=== PATIENT | female | born 1925 | race Caucasian/White ===

== ENCOUNTER 2016-02-23 13:43 | Outpatient (CLI) | payer MEDICARE | END 2016-02-23 13:44 | disposition home or self-care (01) | DX: R19.7 Diarrhea, unspecified (principal); I48.91 Unspecified atrial fibrillation; Z79.01 Long term (current) use of anticoagulants ==

== ENCOUNTER 2016-02-23 15:11 | Outpatient (CLI) | payer MEDICARE | END 2016-02-23 15:12 | disposition home or self-care (01) | DX: I48.91 Unspecified atrial fibrillation (principal); Z79.01 Long term (current) use of anticoagulants ==

== ENCOUNTER 2016-03-03 15:37 | Emergency (ER) | payer MEDICARE ==
[2016-03-03] MEDS ORDERED: DIPHENOX/ATROPINE 2.5/0.025 MG TABLET PO STA (16:26)
[2016-03-03] MEDS ORDERED: DIPHENOX/ATROPINE 2.5/0.025 MG TABLET PO ONE (17:03)
[2016-03-03] MEDS ORDERED: MAGNESIUM OXIDE 400 MG TABLET PO STA (18:15)
[2016-03-03] MEDS ORDERED: ACETAMINOPHEN 325 MG TABLET PO STA (18:15)
[2016-03-03] MEDS ORDERED: MAGNESIUM OXIDE 400 MG TABLET PO ONE (18:22)
[2016-03-03] MEDS ORDERED: ACETAMINOPHEN 325 MG TABLET PO ONE (18:22)
== END 2016-03-03 18:34 | disposition home or self-care (01) ==
DX: T78.49XA Other allergy, initial encounter (principal); R19.7 Diarrhea, unspecified; R06.02 Shortness of breath; I10 Essential (primary) hypertension; Z79.82 Long term (current) use of aspirin; Z79.01 Long term (current) use of anticoagulants
CPT/HCPCS: 36415; 80053; 83690; 83735; 85025; 85610; 99283; 99284; A9270

== ENCOUNTER 2016-03-11 06:36 | Day surgery (SDC) | payer MEDICARE ==
[2016-03-11] MEDS ORDERED: PHENYLEPHRINE 2.5% OPHTH 2 ML DROPS ONE (06:55)
[2016-03-11] MEDS ORDERED: LACTATED RINGERS 500 ML IV ONE (07:15)
[2016-03-11] MEDS ORDERED: CYCLOPENTOLATE 1% OPHTH DROPS 2 ML OPTH ONE (07:40)
[2016-03-11] MEDS ORDERED: PROPARACAINE 0.5% OPHTH DROPS 15 ML OPTH ONE ×2 (07:40→08:25)
[2016-03-11] MEDS ORDERED: KETOROLAC 0.45% OPHTH DROPS OPTH ONE (07:40)
[2016-03-11] MEDS ORDERED: PHENYLEPHRINE 2.5% OPHTH 2 ML DROPS OPTH ONE (07:40)
[2016-03-11] MEDS ORDERED: MIDAZOLAM 2 MG/2 ML VIAL IVP ONE (08:18)
[2016-03-11] MEDS ORDERED: EPINEPHrine 1 MG/ML AMP IVP ONE (08:24)
[2016-03-11] MEDS ORDERED: BRIMONIDINE 0.2% OPHTH DROPS 5 ML OPTH ONE (08:24)
[2016-03-11] MEDS ORDERED: TIMOLOL 0.5% OPHTH DROPS OPTH ONE (08:25)
[2016-03-11] MEDS ORDERED: CHONDR SULF/HYALURONATE SYRINGE IO ONE (08:25)
[2016-03-11] MEDS ORDERED: BSS/LIDOCAINE/EPINEPHRINE 1 ML SYRINGE IO ONE (08:26)
[2016-03-11] MEDS ORDERED: TRIAMCIN/MOXIFLOX/VANCO 1 ML VIAL IO ONE (08:27)
== END 2016-03-11 06:37 | disposition home or self-care (01) ==
PROC: 08RJ3JZ Replacement of Right Lens with Synthetic Substitute, Percutaneous Approach (ICD-10-PCS; principal; 2016-03-11 08:05)
DX: H25.811 Combined forms of age-related cataract, right eye (principal); I10 Essential (primary) hypertension; I48.91 Unspecified atrial fibrillation; Z79.01 Long term (current) use of anticoagulants
CPT/HCPCS: 66984; A9270; V2632

== ENCOUNTER 2016-03-19 15:49 | Outpatient (CLI) | payer MEDICARE | END 2016-03-19 15:50 | disposition home or self-care (01) | DX: I48.91 Unspecified atrial fibrillation (principal); Z79.01 Long term (current) use of anticoagulants ==

== ENCOUNTER 2016-04-21 10:04 | Outpatient (CLI) | payer MEDICARE | END 2016-04-21 10:05 | disposition home or self-care (01) | DX: I48.91 Unspecified atrial fibrillation (principal); Z79.01 Long term (current) use of anticoagulants ==

== ENCOUNTER 2016-05-27 13:56 | Outpatient (CLI) | payer MEDICARE | END 2016-05-27 13:57 | disposition home or self-care (01) | DX: I48.91 Unspecified atrial fibrillation (principal); Z79.01 Long term (current) use of anticoagulants ==

== ENCOUNTER 2016-06-10 15:21 | Outpatient (CLI) | payer MEDICARE | END 2016-06-10 15:22 | disposition home or self-care (01) | DX: I48.91 Unspecified atrial fibrillation (principal); Z79.01 Long term (current) use of anticoagulants ==

== ENCOUNTER 2016-06-23 10:38 | Outpatient (CLI) | payer MEDICARE | END 2016-06-23 10:39 | disposition home or self-care (01) | DX: I48.91 Unspecified atrial fibrillation (principal); Z79.01 Long term (current) use of anticoagulants ==

== ENCOUNTER 2016-07-13 14:21 | Outpatient (CLI) | payer MEDICARE | END 2016-07-13 14:22 | disposition home or self-care (01) | LOC: LAB.F 14:21 | PROVIDERS: ATTEND Internal Medicine | DX: I48.91 Unspecified atrial fibrillation (principal) | CPT/HCPCS: 85610 ==

== ENCOUNTER 2016-07-21 14:53 | Outpatient (CLI) | payer MEDICARE | END 2016-07-21 14:54 | disposition home or self-care (01) | LOC: LAB.F 14:53 | PROVIDERS: ATTEND Internal Medicine | DX: I48.91 Unspecified atrial fibrillation (principal) | CPT/HCPCS: 85610 ==

== ENCOUNTER 2016-08-12 08:00 | Outpatient (CLI) | payer MEDICARE | END 2016-08-12 08:01 | LOC: LAB.F 08:00 | PROVIDERS: ATTEND Internal Medicine | DX: I48.91 Unspecified atrial fibrillation (principal) | CPT/HCPCS: 85610 ==

== ENCOUNTER 2016-09-10 14:30 | Outpatient (CLI) | payer MEDICARE | END 2016-09-10 14:31 | disposition home or self-care (01) | LOC: LAB.F 14:30 | PROVIDERS: ATTEND Internal Medicine | DX: I48.91 Unspecified atrial fibrillation (principal); Z79.01 Long term (current) use of anticoagulants | CPT/HCPCS: 85610 ==

== ENCOUNTER 2016-09-23 14:26 | Outpatient (CLI) | payer MEDICARE | END 2016-09-23 14:27 | disposition home or self-care (01) | LOC: LAB.F 14:26 | PROVIDERS: ATTEND Internal Medicine | DX: I48.91 Unspecified atrial fibrillation (principal) | CPT/HCPCS: 85610 ==

== ENCOUNTER 2016-10-13 14:34 | Outpatient (CLI) | payer MEDICARE | END 2016-10-13 14:35 | disposition home or self-care (01) | LOC: LAB.F 14:34 | PROVIDERS: ATTEND Internal Medicine | DX: I48.91 Unspecified atrial fibrillation (principal); Z79.01 Long term (current) use of anticoagulants | CPT/HCPCS: 85610 ==

== ENCOUNTER 2016-10-27 14:18 | Outpatient (CLI) | payer MEDICARE | END 2016-10-27 14:19 | disposition home or self-care (01) | LOC: LAB.F 14:18 | PROVIDERS: ATTEND Internal Medicine | DX: I48.91 Unspecified atrial fibrillation (principal); Z79.01 Long term (current) use of anticoagulants | CPT/HCPCS: 85610 ==

== ENCOUNTER 2016-11-10 08:13 | Outpatient (CLI) | payer MEDICARE | END 2016-11-10 08:14 | disposition home or self-care (01) | LOC: LAB.F 08:13 | PROVIDERS: ATTEND Internal Medicine | DX: I48.91 Unspecified atrial fibrillation (principal); Z79.01 Long term (current) use of anticoagulants | CPT/HCPCS: 85610 ==

== ENCOUNTER 2016-12-09 14:23 | Outpatient (CLI) | payer MEDICARE | END 2016-12-09 14:24 | disposition home or self-care (01) | LOC: LAB.F 14:23 | PROVIDERS: ATTEND Internal Medicine | DX: I48.91 Unspecified atrial fibrillation (principal); Z79.01 Long term (current) use of anticoagulants | CPT/HCPCS: 85610 ==

== ENCOUNTER 2016-12-27 13:31 | Outpatient (CLI) | payer MEDICARE | END 2016-12-27 13:32 | disposition home or self-care (01) | LOC: LAB.F 13:31 | PROVIDERS: ATTEND Internal Medicine | DX: I48.91 Unspecified atrial fibrillation (principal); Z79.01 Long term (current) use of anticoagulants | CPT/HCPCS: 85610 ==

== ENCOUNTER 2017-01-18 14:58 | Outpatient (CLI) | payer MEDICARE | END 2017-01-18 14:59 | disposition home or self-care (01) | LOC: LAB.F 14:58 | PROVIDERS: ATTEND Internal Medicine | DX: I48.91 Unspecified atrial fibrillation (principal); Z79.01 Long term (current) use of anticoagulants | CPT/HCPCS: 85610 ==

== ENCOUNTER 2017-02-11 10:55 | Outpatient (CLI) | payer MEDICARE | END 2017-02-11 10:56 | disposition home or self-care (01) | LOC: LAB.F 10:55 | PROVIDERS: ATTEND Internal Medicine | DX: I48.91 Unspecified atrial fibrillation (principal); Z79.01 Long term (current) use of anticoagulants | CPT/HCPCS: 85610 ==

== ENCOUNTER 2017-03-14 08:00 | Outpatient (CLI) | payer MEDICARE | END 2017-03-14 23:59 | LOC: LAB.R 08:00 | PROVIDERS: ATTEND Internal Medicine | DX: I48.91 Unspecified atrial fibrillation (principal); Z79.01 Long term (current) use of anticoagulants | CPT/HCPCS: 85610 ==

== ENCOUNTER 2017-03-21 10:40 | Emergency (ER) | payer MEDICARE ==
[2017-03-21 11:12] LABS: BASOPHILS # (AUTO) 0.1 10^3/uL (0.0-0.1); EOSINOPHILS # (AUTO) 0.4 10^3/uL (0.0-0.7); EOSINOPHILS % (AUTO) 5.5 %; HGB - HEMOGLOBIN 13.7 g/dL (12.0-16.0); LYMPHOCYTES % (AUTO) 28.8 %; MEAN PLATELET VOLUME 9.3 fL (7.9-10.8); MONOCYTES # (AUTO) 0.6 10^3/uL (0.0-1.0); MONOCYTES % (AUTO) 9.1 %; NEUTROPHILS # (AUTO) 3.9 10^3/uL (1.5-6.6); NEUTROPHILS % (AUTO) 55.6 %; PLT - PLATELET COUNT 176 10^3/uL (130-450); RED BLOOD COUNT 4.14 10^6/uL (4.20-5.40); RED CELL DISTRIBUTION WIDTH 14.1 % (12.0-15.0)
[2017-03-21 11:31] LABS: ALBUMIN 4.5 g/dL (3.2-5.5); ALBUMIN/GLOBULIN RATIO 1.3 (1.0-2.2); BILIRUBIN,TOTAL 0.9 mg/dL (0.2-1.0); CALCIUM 9.7 mg/dL (8.5-10.3); TOTAL PROTEIN 7.9 g/dL (6.7-8.2)
--- NOTE | 2017-03-21 11:44 | XRAY Preliminary Report ---
Exam: XR CHEST 2 VIEW X-RAY IMPRESSION: Stable chest. No pneumonia, CHF or other demonstrating cause for chest pain. Moderate cardiomegaly, stable. No pulmonary vascular congestion. [facility] SITE ID: [id number]
--- NOTE | 2017-03-21 11:50 | XRAY Report ---
EXAM: CHEST RADIOGRAPHY, 2 VIEWS EXAM DATE: 03/21/2017 11:36 AM. CLINICAL HISTORY: Chest pain in an 89-year-old female. COMPARISON: 12/31/2013 and previous. TECHNIQUE: Sitting AP and lateral views. FINDINGS: Lungs/Pleura: Areas of patchy fibrolinear scarring left lung base, chronic and stable. Lungs otherwis e clear. No pleural effusion. No pneumothorax. Normal volumes. Mediastinum: Moderate cardiomegaly, as previously, without pulmonary vascular congestion or adenopath y. Other: Trachea is midline. Old unfused fracture distal left clavicle with deformity, similar to prior exam. No acute osseous abnormality. IMPRESSION: Stable chest. No pneumonia, CHF or other demonstrated cause for chest pain. Moderate cardiomegaly, stable. No pulmonary vascular congestion. [facility] Referring Provider Line: [phone] SITE ID: [id number]
--- NOTE | 2017-03-21 12:00 | ED Physician Documentation ---
PD HPI CHEST PAIN - Stated complaint Stated Complaint: SOA/CHEST PAIN - Chief complaint Chief Complaint: Cardiac - History obtained from History obtained from: Patient, Family - History of Present Illness Timing - onset: Last night Timing - onset during: Rest Timing - duration: Minutes Timing - details: Abrupt onset, Now resolved Quality: Tightness, Sharp, Pain Location: Substernal Radiation: No: Jaw, Neck, Back, Abdominal, Left upper extremity, Right upper extremity Improved by: Nitro Worsened by: Inspiration Associated symptoms: Shortness of air, Cough. No: Diaphoresis, Nausea, Vomiting , Feeling faint / dizzy, General Weakness, Palpitations Similar symptoms before: No diagnosis Recently seen: Not recently seen - Additional information Additional information: 89-year-old female with a history of atrial fibrillation and cardiomegaly has developed acute chest pain last night that was resolved with a nitroglycerin. She states that she did develop some shortness of breath that was associated with this similar to what she has when she is having trouble with the numerous cats in the house. The patient is not able to coordinate the use of an inhaler. She does have swelling in her ankles periodically and she is on some Lasix for that. She has not had swelling recently. Review of Systems Constitutional: denies: Fever Eyes: denies: Decreased vision Ears: reports: Loss of hearing, Ear pain Nose: reports: Congestion Throat: denies: Sore throat Cardiac: reports: Chest pain / pressure, Palpitations Respiratory: reports: Dyspnea, Cough GI: denies: Abdominal Pain, Nausea, Vomiting : denies: Dysuria, Frequency Skin: denies: Rash Musculoskeletal: denies: Neck pain, Back pain, Extremity pain Neurologic: denies: Generalized weakness, Focal weakness PD PAST MEDICAL HISTORY - Past Medical History Past Medical History: Yes Cardiovascular: Hypertension, Arrhythmia Respiratory: Shortness of breath Endocrine/Autoimmune: None GI: Chronic diarrhea : None HEENT: None Psych: None Musculoskeletal: Chronic back pain Derm: Psoriasis - Past Surgical History Past Surgical History: Yes 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 HEENT: Cataracts - Present Medications Home Medications: Ambulatory Orders Medication Instructions Recorded Confirmed Aspirin [Aspirin EC] 81 mg PO DAILY 03/03/16 03/03/16 Cetirizine [ZyrTEC] 10 mg PO DAILY #20 tablet 03/03/16 03/11/16 Furosemide [Lasix] 40 mg PO DAILY 03/03/16 03/11/16 Loperamide [Imodium] 2 mg PO QID PRN #25 capsule 03/03/16 Losartan Potassium 25 mg ORAL DAILY 03/03/16 03/11/16 Magnesium Oxide [Mag Ox] 400 mg PO DAILY #10 tablet 03/03/16 03/11/16 Omeprazole 10 mg PO DAILY 03/03/16 03/03/16 Potassium Chloride 20 meq PO DAILY 03/03/16 03/11/16 Saccharomyces Boulardii [Florastor] 250 mg PO BID #20 capsule 03/03/16 03/11/16 Spironolactone 25 mg PO DAILY 03/03/16 03/11/16 Warfarin [Coumadin] 5 mg PO DAILY 03/03/16 03/03/16 Metoprolol Tartrate [Lopressor] 25 mg PO BID 03/11/16 03/11/16 Azithromycin [Zithromax] 250 mg PO DAILY #6 tablet 03/21/17 - Allergies Allergies/Adverse Reactions: Allergies Allergy/AdvReac Type Severity Reaction Status Date / Time codeine Allergy Rash Verified 03/21/17 10:51 Penicillins Allergy Rash Verified 03/21/17 10:51 soy Allergy Rash Verified 03/21/17 10:51 - Social History Does the pt smoke?: No Smoking Status: Never smoker Does the pt drink ETOH?: Yes Does the pt have substance abuse?: No PD ED PE NORMAL - Vitals Vital signs reviewed: Yes (hypertensive ) - General General: Alert and oriented X 3, No acute distress, Well developed/nourished - HEENT HEENT: Atraumatic, PERRL, EOMI, Other (The right TM is inflamed with flatening of the TM the right is clear) - Neck Neck: Supple, no meningeal sign, No bony TTP - Cardiac Cardiac: Other (irregularly irregular heart rate without murmer. Rate increases 20 with sitting ) - Respiratory Respiratory: No respiratory distress, Clear bilaterally, Other (There is chest wall tenderness that reproduces the pain the patient experienced last night. ) - Abdomen Abdomen: Soft, Non tender - Back Back: No CVA TTP, No spinal TTP - Derm Derm: Normal color, Warm and dry, No rash - Extremities Extremities: No deformity, No edema - Neuro Neuro: Alert and oriented X 3, No motor deficit, No sensory deficit, Normal speech Eye Opening: Spontaneous Motor: Obeys Commands Verbal: Oriented GCS Score: 15 - Psych Psych: Normal mood, Normal affect Results - Vitals Vitals: Vital Signs - 24 hr 03/21/17 03/21/17 03/21/17 10:44 11:11 12:06 Temperature 36.5 C Heart Rate 88 72 75 Respiratory 15 18 18 Rate Blood Pressure 152/66 H 133/70 H O2 Saturation 100 96 94 03/21/17 03/21/17 03/21/17 12:10 13:00 14:12 Temperature Heart Rate 74 68 Respiratory 18 29 H Rate Blood Pressure 149/71 H 130/67 141/64 H O2 Saturation 93 97 03/21/17 14:47 Temperature Heart Rate 74 Respiratory Rate Blood Pressure O2 Saturation 93 Oxygen O2 Source Room air - EKG (time done) 1047 Rate: Rate (enter#) (87) Rhythm: Atrial fibrillation Intervals: RBBB (atypical) Ischemia: Non specific changes Computer interpretation: Agree with computer - Labs Labs: Laboratory Tests 03/21/17 03/21/17 03/21/17 10:58 10:58 11:06 WBC 7.0 RBC 4.14 L Hgb 13.7 Hct 40.2 MCV 97.0 MCH 33.0 H MCHC 34.0 RDW 14.1 Plt Count 176 MPV 9.3 Neut # 3.9 Lymph # 2.0 [place] # 0.6 Eos # 0.4 Baso # 0.1 Absolute Nucleated RBC 0.00 Nucleated RBC % 0.0 PT 26.9 H INR 2.5 H Sodium 136 Potassium 3.9 Chloride 98 L Carbon Dioxide 25 Anion Gap 13.0 BUN 19 Creatinine 1.0 Estimated GFR (MDRD) 52 L Glucose 138 H Calcium 9.7 Total Bilirubin 0.9 AST 29 ALT 16 Alkaline Phosphatase 62 Troponin I Total Protein 7.9 Albumin 4.5 Globulin 3.4 Albumin/Globulin Ratio 1.3 Lipase 12 L Urine Color Urine Clarity Urine pH Ur Specific [place] Urine Protein Urine Glucose (UA) Urine Ketones Urine Occult Blood Urine Nitrite Urine Bilirubin Urine Urobilinogen Ur Leukocyte Esterase Ur Microscopic Review Urine Culture Comments 03/21/17 03/21/17 11:06 13:45 WBC RBC Hgb Hct MCV MCH MCHC RDW Plt Count MPV Neut # Lymph # [place] # Eos # Baso # Absolute Nucleated RBC Nucleated RBC % PT INR Sodium Potassium Chloride Carbon Dioxide Anion Gap BUN Creatinine Estimated GFR (MDRD) Glucose Calcium Total Bilirubin AST ALT Alkaline Phosphatase Troponin I < 0.04 Total Protein Albumin Globulin Albumin/Globulin Ratio Lipase Urine Color YELLOW Urine Clarity CLEAR Urine pH 8.0 H Ur Specific [place] 1.015 Urine Protein NEGATIVE Urine Glucose (UA) NEGATIVE Urine Ketones NEGATIVE Urine Occult Blood NEGATIVE Urine Nitrite NEGATIVE Urine Bilirubin NEGATIVE Urine Urobilinogen 0.2 (NORMAL) Ur Leukocyte Esterase NEGATIVE Ur Microscopic Review NOT INDICATED Urine Culture Comments NOT INDICATED - Rads (name of study) 2 view chest Radiology: Prelim report reviewed (Impression: Stable chest. No pneumonia, CHF or other demonstrate a cause for chest pain. Moderate cardiomegaly, stable. No pulmonary vascular congestion.), EMP read indepedently, See rad report Procedures - IVC sono (time) 1220 Bedside IVC sono: IVC measures (cm) (0.87), IVC collapsed c insp (cm) (complete) , Dehydration (est 2 liter deficit) PD MEDICAL DECISION MAKING - ED course Complexity details: reviewed old records, reviewed results, re-evaluated patient , considered differential, d/w patient, d/w family ED course: 89-year-old female with an episode of chest pain yesterday that she has had periodically previously and has not sought attention for. I am not able to elicit an exertional component to this pain. She does have on exam today pain in the chest wall consistent with costochondritis and palpation of this area reproduces the pain the patient experienced last night. She states last night the pain was persistent today it is only tender with palpation. She does have multiple cats in her home and she feels she is sensitive to these and she is not able to coordinate the use of an inhaler. Here in the emergency department today I am not hearing wheezes and she is able to move fair air. On examination she does have otitis on the right and she has had a cough that is been intermittent. She does have ENT follow-up. She takes some Lasix for swelling in her ankles and today she appears significantly dehydrated. She had approximately 20 point increase in her heart rate just sitting up in the bed for examination and her inferior vena cava was interrogated and demonstrated approximately 2 L deficit. Here in the emergency department she is treated for costochondritis otitis and dehydration. Departure - Departure Disposition: 01 Home, Self Care Clinical Impression: Environmental allergies, Chest wall pain, Dehydration Otitis media Qualifiers: Otitis media type: suppurative Chronicity: acute Laterality: right Recurrence: not specified as recurrent Spontaneous tympanic membrane rupture: without spontaneous rupture Qualified Code(s): H66.001 - Acute suppurative otitis media without spontaneous rupture of ear drum, right ear Instructions: ED Dehydration, ED Otitis Media Acute Adult, ED Chest Pain Costochondritis Follow-Up: John Strickland MD [Primary Care Provider] - Prescriptions: Azithromycin [Zithromax] 250 mg PO DAILY #6 tablet Comments: Today it appears you have a middle ear infection and are significantly dehydrated. It appears the pain in her chest is related to chest wall strain from tugging for a breath or coughing. I recommend you discontinue the furosemide and Spironolactone for 2 days and follow-up in 3 days for a recheck of your INR. Forms: Activity restrictions
[2017-03-21] MEDS ORDERED: DEXAMETHASONE 10 MG/ML VIAL IVP STA (12:25)
[2017-03-21] MEDS ORDERED: SODIUM CHLORIDE 0.9% 500 ML IV ONE (12:25)
[2017-03-21] MEDS ORDERED: cefTRIAXone 1 GM in SODIUM CHLORIDE 0.9% MINIBAG 100 ML IV STA (12:25)
[2017-03-21 12:56] LABS: INR 2.5 (0.8-1.2); PT - PROTHROMBIN TIME 26.9 secs (9.9-12.6)
[2017-03-21 14:00] LABS: BILIRUBIN,URINE NEGATIVE (NEGATIVE); GLUCOSE, URINE (UA) NEGATIVE (NEGATIVE); KETONES,URINE (UA) NEGATIVE (NEGATIVE); LEUKOCYTE ESTERASE, URINE NEGATIVE (NEGATIVE); NITRITE,URINE NEGATIVE (NEGATIVE); OCCULT BLOOD,URINE NEGATIVE (NEGATIVE); PROTEIN,URINE NEGATIVE (NEGATIVE); UROBILINOGEN,URINE 0.2 (NORMAL) E.U./dL (NORMAL)
[2017-03-21 14:06] LABS: CLARITY,URINE CLEAR (CLEAR)
[2017-03-21 15:17] VITALS: BP 158/92
== END 2017-03-21 15:25 | disposition home or self-care (01) ==
LOC: ED 10:40
DX: M94.0 Chondrocostal junction syndrome [Tietze] (principal); T78.40XA Allergy, unspecified, initial encounter; E86.0 Dehydration; H66.001 Acute suppurative otitis media without spontaneous rupture of ear drum, right ear; I10 Essential (primary) hypertension; I48.91 Unspecified atrial fibrillation; I45.10 Unspecified right bundle-branch block; Z79.01 Long term (current) use of anticoagulants; Z79.82 Long term (current) use of aspirin
CPT/HCPCS: 36415; 71046; 80053; 81001; 81003; 83690; 84484; 85025; 85610; 87086; 93005; 96361; 96365; 96375; 99283; 99284

== ENCOUNTER 2017-04-15 15:13 | Outpatient (CLI) | payer MEDICARE | END 2017-04-15 15:14 | disposition home or self-care (01) | LOC: LAB.F 15:13 | PROVIDERS: ATTEND Internal Medicine | DX: I48.91 Unspecified atrial fibrillation (principal); Z79.01 Long term (current) use of anticoagulants | CPT/HCPCS: 85610 ==

== ENCOUNTER 2017-04-20 14:09 | Outpatient (CLI) | payer MEDICARE ==
[2017-04-20 17:58] LABS: CALCIUM 9.4 mg/dL (8.5-10.3)
== END 2017-04-20 14:10 | disposition home or self-care (01) ==
LOC: LAB.F 14:09
PROVIDERS: ATTEND Internal Medicine
DX: Z79.899 Other long term (current) drug therapy (principal)
CPT/HCPCS: 36415; 80048

== ENCOUNTER 2017-05-16 11:08 | Outpatient (CLI) | payer MEDICARE | END 2017-05-16 11:09 | disposition home or self-care (01) | LOC: LAB.F 11:08 | PROVIDERS: ATTEND Internal Medicine | DX: I48.91 Unspecified atrial fibrillation (principal); Z79.01 Long term (current) use of anticoagulants | CPT/HCPCS: 85610 ==

== ENCOUNTER 2017-06-09 09:13 | Outpatient (CLI) | payer MEDICARE | END 2017-06-09 09:14 | disposition home or self-care (01) | LOC: LAB.F 09:13 | PROVIDERS: ATTEND Internal Medicine | DX: I48.91 Unspecified atrial fibrillation (principal); Z79.01 Long term (current) use of anticoagulants | CPT/HCPCS: 85610 ==

== ENCOUNTER 2017-07-15 14:35 | Outpatient (CLI) | payer MEDICARE | END 2017-07-15 14:36 | disposition home or self-care (01) | LOC: LAB.F 14:35 | PROVIDERS: ATTEND Internal Medicine | DX: I48.91 Unspecified atrial fibrillation (principal); Z79.01 Long term (current) use of anticoagulants | CPT/HCPCS: 85610 ==